=== PATIENT | male | born 1985 | race Caucasian/White ===

== ENCOUNTER 2017-05-07 11:12 | Emergency (ER) | payer OTHER ==
--- NOTE | 2017-05-07 12:03 | ERPHSYRPT ---
- History of Present Illness Time Seen by Provider: 05/07/17 11:59 Source: patient Exam Limitations: no limitations Patient Subjective Stated Complaint: pt reports stepping in pot hole et rolling right ankle last night Triage Nursing Assessment: selling noted to right ankle-no obvious deformity- pulses present Physician History: pt reports stepping in pot hole et rolling right ankle last night, able to walk but pain when put weight on right foot Method of Injury: twisted Occurred: yesterday Quality: constant Severity of Pain-Max: mild Severity of Pain-Current: moderate Lower Extremities Pain: ankle: right Modifying Factors: Improves With: rest Associated Symptoms: unable to bear weight, No snapping sensation, No popping sensation Allergies/Adverse Reactions: No Known Drug Allergies Allergy (Unverified 05/07/17 11:22) Home Medications: Amlodipine Besylate 10 mg [Norvasc 10 MG] 10 mg PO DAILY 05/07/17 [History] Hydrochlorothiazide 25 mg [hydroDIURIL 25 MG] 25 mg PO DAILY 05/07/17 [ History] Lisinopril 10 mg [Zestril 10 MG] 10 mg PO DAILY 05/07/17 [History] Metformin HCl [Glucophage] 1,000 mg PO DAILY 05/07/17 [History] Omeprazole 20 mg PO DAILY 05/07/17 [History] Hx Tetanus, Diphtheria Vaccination/Date Given: No Hx Influenza Vaccination/Date Given: No Hx Pneumococcal Vaccination/Date Given: No Immunizations Up to Date: Yes - Review of Systems Constitutional: No Symptoms Musculoskeletal: Injury, Joint Pain, Joint Swelling, No Deformity Skin: No Symptoms Neurological: No Symptoms - Past Medical History Pertinent Past Medical History: Yes Cardiac History: Hypertension Endocrine Medical History: Diabetes Type II - Past Surgical History Past Surgical History: No - Social History Smoking Status: Current every day smoker How long have you smoked: yrs Exposure to second hand smoke: No Drug Use: none Patient Lives Alone: No - Nursing Vital Signs Nursing Vital Signs: Initial Vital Signs Temperature 97.5 F 05/07/17 11:16 Pulse Rate 65 05/07/17 11:16 Respiratory Rate 18 05/07/17 11:16 Blood Pressure 118/75 05/07/17 11:16 O2 Sat by Pulse Oximetry 96 05/07/17 11:16 Pain Scale Pain Intensity 8 - Physical Exam General Appearance: no apparent distress Ankle Exam: right ankle: limited range of motion, pain, soft tissue tenderness, swelling Foot Exam: right foot: soft tissue tenderness, swelling Neuro/Tendon Exam: normal sensation, normal motor functions, normal tendon functions Mental Status Exam: alert, oriented x 3, cooperative SpO2: 96 Oxygen Delivery: Room Air - Radiology Exams Ankle X-ray Interpretation: Teleradiologist Report Ordered Tests: Active Orders 24 hr Category Date Time Status ANKLE (3 VIEWS) Stat Exams 05/07/17 Taken - Progress Progress: improved, pain not gone completely Counseled pt/family regarding: diagnosis, need for follow-up, rad results - Departure Time of Disposition: 12:03 Departure Disposition: Home Clinical Impression: Sprain and strain of deltoid (ligament) of ankle Qualifiers: Encounter type: initial encounter Laterality: right Qualified Code(s): S93.421A - Sprain of deltoid ligament of right ankle, initial encounter Condition: Stable Critical Care Time: No Referrals: YENNY LOWE [Primary Care Provider] - Instructions: Ankle Sprain, Ankle Pain Additional Instructions: SPRAINS/STRAINS/CONTUSIONS 1. Rest the affected area as much as possible for the next few days. 2. Apply ice to the affected area for 20-30 minutes at a time, several times a day. 3. If you receive an elastic wrap, wear it only while awake for comfort and support. Re-wrap the elastic wrap if it feels too tight or too loose. 4. If swelling is present, elevate the affected part above the level of the heart for at least 2 to 3 days. 5. Use splints, slings, or crutches as instructed. 6. Watch for severe swelling, coldness, numbness, and discoloration of the fingers and toes. See your family physician or return to the emergency department if any of these are noted. Prescriptions: Naproxen 500 mg [Naprosyn 500 MG] 500 mg PO BIDAC #30 tablet
[2017-05-07 12:38] VITALS: BP 142/78; PULSE 78; O2SAT 98
--- NOTE | 2017-05-07 21:12 | XRAY ---
Indication: Pain following injury. Comparison: None 3 views of the right ankle demonstrates mild soft tissue swelling and tiny spurring of the calcaneus and tip of the lateral malleolus. No other bony, articular, or soft tissue abnormalities. Comment: Preliminary interpretation was made by [facility]. No discrepancy.
== END 2017-05-07 12:38 | disposition home or self-care (01) ==
LOC: ED 11:12
DX: S93.421A Sprain of deltoid ligament of right ankle, initial encounter (principal); W17.2XXA Fall into hole, initial encounter
CPT/HCPCS: 73610; 99283; 99284

== ENCOUNTER 2020-10-01 05:54 | Day surgery (SDC) | payer OTHER ==
[2020-10-01] MEDS ORDERED: Lactated Ringers 1,000 ML IV SCH (06:30)
[2020-10-01] MEDS ORDERED: Versed 2 MG/2 ML Injection ONE (07:59)
[2020-10-01] MEDS ORDERED: DIPRIVAN 200 MG/20 ML IV ONE (07:59)
[2020-10-01] MEDS ORDERED: Xylocaine-Mpf 2% 5 Ml Vial ONE (07:59)
[2020-10-01 09:24] VITALS: O2SAT 94
[2020-10-01 09:28] VITALS: BP 149/95; PULSE 76
--- NOTE | 2020-10-01 11:14 | OP ---
SURGERY DATE/TIME: 10/01/2020 0804 PREOPERATIVE DIAGNOSIS: Persistent gastroesophageal reflux disease. POSTOPERATIVE DIAGNOSIS: Mild gastritis. PROCEDURE: EGD. SURGEON: Haja Alejo M.D. ANESTHESIA: MAC by Gamaliel Bates CRNA. ESTIMATED BLOOD LOSS: Minimal. SPECIMENS: There were two cold forceps biopsies taken from the gastric antrum. DESCRIPTION OF PROCEDURE: After informed written consent was obtained, the patient was taken to the endoscopy suite. He had a bite block inserted, placed in the left lateral decubitus position and anesthesia titrated to the desired level of consciousness. Under direct visualization the esophagus entered with the scope and easily traversed. The gastroesophageal junction had a normal appearance. Upon entering the gastric cavity there was normal rugated gastric mucosa. There were some mild gastritis-type changes in the area of the gastric antrum. The pylorus was traversed and the first and second portions of the duodenum had no lesions or mucosal abnormalities. Two cold forceps biopsies were taken from the gastric antrum and sent for Helicobacter pylori testing due to mild gastritis. Retroflexion showed no obvious abnormalities. Upon withdrawal again the gastroesophageal junction had a normal appearance as well as the entire esophageal mucosa. The scope was removed and the patient was transferred to the recovery room in good condition. He will continue his proton pump inhibitor and follow up in a week for pathology results.
== END 2020-10-01 09:10 | disposition home or self-care (01) ==
LOC: SDC 05:54
PROVIDERS: ATTEND Family Medicine
DX: K29.70 Gastritis, unspecified, without bleeding (principal); K21.9 Gastro-esophageal reflux disease without esophagitis; E11.9 Type 2 diabetes mellitus without complications; I10 Essential (primary) hypertension; Z79.899 Other long term (current) drug therapy
CPT/HCPCS: 82947; 88305; J2250; J2704